=== PATIENT | male | born 1940 | race Caucasian/White ===

== ENCOUNTER 2017-08-08 07:25 | Emergency (ER) | payer OTHER, MEDICARE ==
[~2017-08-08] VITALS: Ht 175.3 cm; Wt 90.7 kg
[~2017-08-08 07:25] MED LIST: ACET325S; ASPI81CH; ATEN25; BUPR150ER; CLOP75 PO; GABA300T24 PO; OMEP20ER; Robaxin750 MG; SIMV40 PO; ZESTORETIC 20-121 EA
[2017-08-08] MEDS ORDERED: ATEN25 PO (07:54)
[2017-08-08] MEDS ORDERED: ACET500 PO (07:54)
[2017-08-08] MEDS ORDERED: NAPR500 PO (07:55)
[2017-08-08] MEDS ORDERED: Omeprazole20 M1 PO (07:55)
[2017-08-08] MEDS ORDERED: METCAR500 PO (07:55)
[2017-08-08] MEDS ORDERED: MELA3 PO (07:55)
[2017-08-08] MEDS ORDERED: AMLO5 PO (07:56)
[2017-08-08] MEDS ORDERED: LISI20 PO (07:56)
[2017-08-08 07:59] LABS: BASOPHILS ABSOLUTE AUTO 0.02 K/mm3 (0.00-0.23); BASOPHILS PERCENT AUTO 1 % (0-2); EOSINOPHILS ABSOLUTE AUTO 0.01 K/mm3 (0.00-0.68); EOSINOPHILS PERCENT AUTO 0 % (0-6); Hematocrit 34.1 % (37.0-53.0); Hemoglobin 11.4 g/dL (13.5-17.5); IMMATURE GRAN ABSOLUTE AUTO 0.01 K/mm3 (0.00-0.10); IMMATURE GRAN PERCENT AUTO 0 % (0-1); LYMPHOCYTES ABSOLUTE AUTO 0.42 K/mm3 (0.84-5.20); LYMPHOCYTES PERCENT AUTO 10 % (21-46); MONOCYTES ABSOLUTE AUTO 0.53 K/mm3 (0.16-1.47); MONOCYTES PERCENT AUTO 13 % (4-13); Mean Corpuscular HGB 31.4 pg (26.0-34.0); Mean Corpuscular HGB Conc 33.4 g/dL (31.5-36.5); Mean Corpuscular Volume 94 fL (80-100); Mean Platelet Volume 9.3 fL (9.1-12.4); NEUTROPHILS ABSOLUTE AUTO 3.25 K/mm3 (1.96-9.15); NEUTROPHILS PERCENT AUTO 77 % (41-73); Platelet Count 119 K/mm3 (150-400); RDW Coefficient Variation 13.2 % (11.7-14.2); RDW Standard Deviation 45.5 fL (35.1-46.3); Red Blood Cell Count 3.63 M/mm3 (4.30-5.90); White Blood Cell Count 4.24 K/mm3 (4.00-11.30)
[2017-08-08] MEDS ORDERED: OMEG1CAP30 PO (07:59)
[2017-08-08] MEDS ORDERED: Hair, Skin & N1 EACH PO (08:00)
[2017-08-08] MEDS ORDERED: GLUCOSAMINE1000 MG PO (08:02)
[2017-08-08 08:12] LABS: International Normalized Ratio 1.05; Prothrombin Time Results 10.9 Sec (9.7-11.5)
[2017-08-08 08:21] LABS: Alanine Aminotransfer (ALT/SGP 23 U/L (12-78); Albumin, Blood 3.7 g/dL (3.4-5.0); Albumin/Globulin Ratio 1.1 (0.8-1.8); Alk Phos 60 U/L (50-136); Anion Gap 9 mmol/L (6-16); Aspartate Aminotrans (AST/SGOT 29 U/L (12-37); Bilirubin, Total 0.6 mg/dL (0.1-1.0); Blood Urea Nitrogen 17 mg/dL (8-24); Bun/Creatinine Ratio 12.6 (12.0-20.0); CO2, Blood 25 mmol/L (21-32); Chloride, Blood 108 mmol/L (98-108); Creatinine, Blood 1.35 mg/dL (0.60-1.20); Globulin, Blood 3.5 g/dL (2.2-4.0); Glomerular Filtration Rate 54 (60-); Glucose, Blood 120 mg/dL (70-99); Potassium, Blood 3.8 mmol/L (3.5-5.5); Sodium, Blood 142 mmol/L (136-145); Total Protein, Blood 7.2 g/dL (6.4-8.2)
[2017-08-08 08:52] LABS: Troponin I <0.015 ng/mL (0.000-0.040)
[2017-08-08 09:51] LABS: Source, Urine Catheter
[2017-08-08 09:56] LABS: Bilirubin, Urine Neg (Neg); Blood, Urine Neg (Neg); Glucose Qualitative, Urine Neg (Neg); Ketones, Urine Neg (Neg); Leukocyte Esterase, Urine Neg (Neg); Nitrite, Urine Neg (Neg); Protein, Urine 1+ (Neg); Specific Gravity, Urine 1.015 (1.003-1.022); Urobilinogen, Urine NORM (Normal)
[2017-08-08 10:11] LABS: Appearance, Urine Clear (Clear); Color, Urine Yellow (P-Yellow)
[2017-08-08 10:57] LABS: Influenza A Negative (NEGATIVE); Influenza B Positive (NEGATIVE)
== END 2017-08-08 11:47 | disposition home or self-care (01) ==
LOC: ER 07:25
PROVIDERS: Emergency Medicine
DX: J10.1 Influenza due to other identified influenza virus with other respiratory manifestations (principal); I10 Essential (primary) hypertension; Z87.891 Personal history of nicotine dependence; Z79.82 Long term (current) use of aspirin; Z79.899 Other long term (current) drug therapy
CPT/HCPCS: 36415; 71046; 80053; 83605; 84484; 85025; 85610; 85730; 87040; 87086; 87804; 93005; 93010; 96361; 96365; 96367; 99284; J0456; J0696; J7030; J7050

== ENCOUNTER 2023-04-14 06:19 | Day surgery (SDC) | payer MEDICARE, OTHER ==
[2023-04-14] VITALS (7 sets, daily range): BP systolic 112–134; BP diastolic 63–94
[~2023-04-14] VITALS: Ht 175.3 cm; Wt 92.0 kg
[~2023-04-14 06:19] MED LIST changes: +ACET500 PO; +AMLO5 PO; -ASPI81CH; +ATEN25 PO; +Aspir 8181 MG PO; -BUPR150ER; +BUPR150ER PO; +FISH OIL 1,0001 EA10 PO; +GABA300 PO; -GABA300T24 PO; +GLUCHON PO; +GLUCOSAMINE1000 MG PO; +Hair, Skin & N1 EACH PO; +Isosorbide Mono30 MG PO; +LISI20 PO; +MELA3 PO; +METCAR500 PO; +NAPR500 PO; +OMEG1CAP30 PO; +Omeprazole20 M1 PO; +Robaxin750 MG PO; +TIMO.5OPSO BOTHEYES
--- NOTE | 2023-04-14 11:00 | NUR ---
PT AMB TO BATHROOM /C SBA ASSIST. TOLERATED WELL. -BLEEDING OR SWELLING R GROIN AREA.
--- NOTE | 2023-04-14 11:43 | NUR ---
PT VERBALIZED UNDERSTANDING OF WRITTEN AND VERBAL D/C INST. IV REMOVED.
== END 2023-04-14 12:30 | disposition home or self-care (01) ==
LOC: MHTC 06:19
DX: I25.10 Atherosclerotic heart disease of native coronary artery without angina pectoris (principal); R00.1 Bradycardia, unspecified; I25.2 Old myocardial infarction; I10 Essential (primary) hypertension; J98.4 Other disorders of lung; E78.2 Mixed hyperlipidemia; Z95.1 Presence of aortocoronary bypass graft
CPT/HCPCS: 76937; 93455; 99152; 99153; C1760; C1769; C1894; J1644; J2250; J3010; J7030; J7050; Q9967